=== PATIENT | female | born 1955 | race Caucasian/White ===

== ENCOUNTER → 2017-11-26 | Outpatient (CLI) | payer BC, OTHER ==
--- NOTE | ~2017-11-26 | PATH ---
[facility] [address] [place] [address] PATHOLOGY RPT PROCEDURE Name: CAPRI ROSADO Room #: REG MALORIE Alo.#: [id number] Admission: 11/26/17 Date of : 55 Discharge: Report #: [id number] Path Case #: [id number] [facility] Accession Number: [id number] . 01 Material submitted: . POSTERIOR NECK MASS . 01 Clinical history: . Post neck mass . 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 - No lymphoid tissue present. - No glandular tissue or epithelial elements present. LBQ/11/29/2017 . 02 Comment: Examination shows a bland spindle cell lesion. There is no nuclear atypia present. There are no areas of necrosis identified in the sampled tissue. Mitoses are not identified as well. Immunohistochemical stains are performed and the lesion is reactive in a membranous pattern to Desmin. Cytoplasmic reactivity is identified with beta-catenin. No nuclear reactivity is identified. CD34 and SMA are reactive in the smooth muscle within the vessels in the lesion. P63 and MART-1 are non-reactive. The non-reactive immunohistochemical stains argue against a solitary fibrous tumor, a squamous cell carcinoma as well as a melanoma. S100 is non-reactive as well arguing against a neural origin. The Desmin reactivity is suggestive of a smooth muscle lesion; however, SMA is non-reactive, therefore not supportive of the same. . 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 . A portion of this specimen was sent for flow cytometric analysis to [facility] ([id number]). It showed no immunophenotypic evidence of a lymphoproliferative disorder. The specimen was paucicellular and a low viability specimen. The flow cytometry analysis showed a significant proportion of the analyzed events to be lysed. Please see separate report for details. . Co-review: Dr. Quin Espinoza . Correlate clinically and follow-up as indicated. An excisional biopsy is indicated if clinical suspicion persists or if the mass has discordant findings radiologically. (IUV/db; 11/28/17) [address] [address] PATHOLOGY RPT PROCEDURE Name: ALONZOCAPRI Room #: REG MALORIE Diego#: [id number] Admission: 11/26/17 Date of : 55 Discharge: Report #: [id number] Path Case #: [id number] . 02 Electronically signed: . Jenifer Coates MD, Pathologist NPI- [id number] . 01 Gross description: . The specimen is received in formalin, labeled "Alonzo, Capri and post neck biopsy", are several gould-white soft needle cores measuring 0.7 x 0.2 x 0.1 cm in aggregate. The specimen is entirely submitted in A1-A2. . . ([facility]; 11/26/2017) [facility] . 02 Pathologist provided ICD-10: M79.89, R22.1 . 02 CPT . 436179, [id number], [id number] Performed at: [address] [facility], [place], [place] [id number] MD Owen Smiley MD Phone: [phone] Performed at: [address] [id number] MD Jenifer Coates MD Phone: [phone]
== END | disposition home or self-care (01) ==
LOC: ULTRA 08:50
DX: C49.0 Malignant neoplasm of connective and soft tissue of head, face and neck (principal); Z88.0 Allergy status to penicillin